=== PATIENT | female | born 1990 | race Caucasian/White ===

== ENCOUNTER 2016-08-19 23:49 | Emergency (ER) | payer SELFPAY ==
[~2016-08-19] VITALS: Ht 165.1 cm; Wt 113.5 kg
[2016-08-20] VITALS: Ht 165.1 cm; Wt 113.5 kg
--- NOTE | 2016-08-20 00:52 | ERD ---
ER Documentation Chief Complaint Date/Time DATE: 08/20/16 TIME: 00:46 Chief Complaint chest pain x 2 days, right arm pain w/ numbness x 2 days HPI 26-year-old female presents here in emergency department for complaints of right -sided chest pain that numbness and tingling for 2 days. 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 Patient used to take blood thinners for this. Patient did not take any medications for pain. Patient denies any fever or chills. Patient denies any cough. Patient has an acid reflux. ROS All systems reviewed and are negative except as per history of present illness. Medications Home Meds Reported Medications [none] Unknown Strength No Conflict Check 08/20/16 Allergies Allergies: Coded Allergies: No Known Allergy (Unverified , 08/20/16) PMhx/Soc Medical and Surgical Hx: pt denies Medical Hx, pt denies Surgical Hx Hx Alcohol Use: No Hx Substance Use: No Hx Tobacco Use: Yes Smoking Status: Current every day smoker FmHx Family History: No coronary disease, No diabetes, No other Physical Exam Vitals Vital Signs Date Time Temp Pulse Resp B/P Pulse Ox O2 Delivery O2 Flow Rate FiO2 08/20/16 00:00 98.3 93 20 177/101 99 Physical Exam GENERAL: The patient is well developed and appropriate for usual state of health, in no apparent distress. CHEST: Clear to auscultation bilaterally. There are no rales, wheezes or rhonchi. HEART: Regular rate and rhythm. No murmurs, clicks, rubs or gallops. No S3 or S4. ABDOMEN: Soft, nontender and nondistended. Good bowel sounds. No rebound or guarding. No gross peritonitis. No gross organomegaly or masses. No Stuart sign or McBurney point tenderness. BACK: No midline or flank tenderness. EXTREMITIES: Equal pulses bilaterally. There is no peripheral clubbing, cyanosis or edema. No focal swelling or erythema. Full range of motion. Grossly neurovascularly intact. NEURO: Alert and oriented. Cranial nerves 2-12 intact. Motor strength in all 4 extremities with 5/5 strength. Sensation grossly intact. Normal speech and gait. SKIN: There is no apparent rash or petechia. The skin is warm and dry. HEMATOLOGIC AND LYMPHATIC: There is no evidence of excessive bruising or lymphedema. No gross cervical, axillary, or inguinal lymphadenopathy. Result Diagram: 08/20/16 0050 08/20/16 0050 Results 24 hrs Laboratory Tests Test 08/20/16 00:50 White Blood Count 17.010^3/ul Red Blood Count 4.8310^6/ul Hemoglobin 12.5g/dl Hematocrit 40.7% Mean Corpuscular Volume 84.3fl Mean Corpuscular Hemoglobin 25.9pg Mean Corpuscular Hemoglobin Concent 30.7g/dl Red Cell Distribution Width 13.0% Platelet Count 30799^3/UL Mean Platelet Volume 10.1fl Neutrophils % 70.9% Lymphocytes % 22.5% Monocytes % 5.5% Eosinophils % 0.5% Basophils % 0.2% Nucleated Red Blood Cells % 0.0/100WBC Neutrophils # 12.010^3/ul Lymphocytes # 3.810^3/ul Monocytes # 0.910^3/ul Eosinophils # 0.110^3/ul Basophils # 0.010^3/ul Nucleated Red Blood Cells # 0.010^3/ul Sodium Level 137mmol/L Potassium Level 3.7mmol/L Chloride Level 103mmol/L Carbon Dioxide Level 29mmol/L Anion Gap 9 Blood Urea Nitrogen 13mg/dl Creatinine 0.72mg/dl Glucose Level 140mg/dl Calcium Level 8.8mg/dl Total Bilirubin 0.1mg/dl Direct Bilirubin 0.00mg/dl Indirect Bilirubin 0.1mg/dl Aspartate Amino Transf (AST/SGOT) 19IU/L Alanine Aminotransferase (ALT/SGPT) 27IU/L Alkaline Phosphatase 90IU/L Troponin I < 0.012ng/ml Total Protein 7.2g/dl Albumin 3.9g/dl Globulin 3.30g/dl Albumin/Globulin Ratio 1.18 EKG was done, read by me and is sinus tachycardia at 104 bpm, normal axis, there is no ST changes or changes in the EKG that indicates any cardiac emergencies at this time. Patient's EKG was also reviewed by . Impression: no acute findings on EKG PROCEDURE: XR left ankle. CLINICAL INDICATION: Left -sided ankle pain TECHNIQUE: AP , oblique and lateral views of theleft ankle were performed. COMPARISON: None. FINDINGS: There is normal mineralization and alignment. No fracture or osseous lesion is identified. The ankle mortis and talar dome are intact. Mild soft tissue swelling is present. The growth plates are patent compatible with the patient' s provided age of 12 years. There is no evidence for a radiopaque foreign body. RPTAT:HJJR IMPRESSION: Mild soft tissue swelling without evidence of osseous abnormality involving the left ankle. Chris Strong Physician Date Time Electronically viewed and signed by Physician Palomo on 08/20/2016 00:58 JR/ CC: ELENA DYE REGISTERED NURSE MIDWIFE PROCEDURE: XR left foot. CLINICAL INDICATION: Pain TECHNIQUE: AP, lateral and oblique views of the left foot were obtained. COMPARISON: None. FINDINGS: Mineralization is within normal limits. No fracture or osseous lesion is identified. There is no evidence for dislocation. The metatarsophalangeal, interphalangeal, and mid tarsal joint spaces are preserved. Growth plates are patent compatible the patient's provided age of 12 years. The soft tissues are unremarkable. There is no evidence for a radiopaque foreign body. IMPRESSION: Unremarkable left foot series. RPTAT:HJJR Physician Palomo Date Time Electronically viewed and signed by Physician Palomo on 08/20/2016 00:59 JR/ CC: ELENA DYE REGISTERED NURSE MIDWIFE PROCEDURE: Ultrasound examination of the right upper extremity veins with Doppler. CLINICAL INDICATION: Pain and swelling. TECHNIQUE: Multiple sonographic images of the right upper extremity veins were performed with plasencia scale and color Doppler. COMPARISON: None. FINDINGS: The right internal jugular, subclavian, axillary, brachial, basilic, cephalic, radial and ulnar veins demonstrate normal color flow, waveforms and compression. There is no evidence of deep venous thrombosis. IMPRESSION: No evidence of deep venous thrombosis within the right upper extremity veins. .Dandre Johns MD, MD Date Time Electronically viewed and signed by .Dandre Johns MD, MD on 08/20/2016 01:46 .T/ CC: ELENA DYE NP Procedures/MDM Medical Decision Making: Patient's chest pain nonspecific at this time, possible musculoskeletal pain, accompanied with the right numbness and tingling possible musculoskeletal pain also. Troponin is negative. No symptoms of any DVT. There is low suspicion for cardiopulmonary emergencies at this time. Patient has low risk factors. EKG is normal, there is no changes in the EKG that indicates cardiac emergencies. Chest X-ray does not show cardiopulmonary emergencies at this time. There is low suspicion for aortic aneurysm, myocardial infarction, pneumothorax, pleural effusion, pulmonary embolism, or any other cardiopulmonary emergencies at this time. Cardiac markers are normal. Prescription was given for ibuprofen for mild to moderate pain, tramadol for severe pain. Follow-up with primary care doctor in 1-2 days for reevaluation of symptoms. Patient was advised to return to emergency department for any worsening symptoms. Departure Diagnosis: Primary Impression: Atypical chest pain Additional Impression: Numbness Condition: Stable Patient Instructions: Chest Pain, Uncertain Cause Additional Instructions: Prescription was given for ibuprofen for mild to moderate pain, tramadol for severe pain. Follow-up with primary care doctor in 1-2 days for reevaluation of symptoms. Patient was advised to return to emergency department for any worsening symptoms. ELENA DYE NP Aug 20, 2016 00:52
[2016-08-20 00:58] LABS: ADD SCAN DIFF NO
[2016-08-20 00:59] LABS: BASOPHILS % 0.2 % (0.0-2.0); EOSINOPHILS # 0.1 10^3/ul (0.0-0.5); EOSINOPHILS % 0.5 % (0.0-7.0); HEMATOCRIT 40.7 % (37.0-47.0); HEMOGLOBIN 12.5 g/dl (12.0-16.0); LYMPHOCYTES # 3.8 10^3/ul (0.8-2.9); LYMPHOCYTES % 22.5 % (15.0-51.0); MEAN CORPUSCULAR HEMOGLOBIN 25.9 pg (29.0-33.0); MEAN CORPUSCULAR HGB CONC 30.7 g/dl (32.0-37.0); MEAN CORPUSCULAR VOLUME 84.3 fl (82.0-101.0); MEAN PLATELET VOLUME 10.1 fl (7.4-10.4); MONOCYTE # 0.9 10^3/ul (0.3-0.9); MONOCYTES % 5.5 % (0.0-11.0); NEUTROPHILS % 70.9 % (39.0-77.0); PLATELET COUNT 325 10^3/UL (140-415); RED BLOOD COUNT 4.83 10^6/ul (4.20-5.40)
[2016-08-20 01:15] LABS: ALANINE AMINOTRANSFERASE 27 IU/L (13-69); ALBUMIN 3.9 g/dl (3.3-4.9); ALBUMIN/GLOBULIN RATIO 1.18; ALKALINE PHOSPHATASE 90 IU/L (42-121); ANION GAP 9 (8-16); ASPARTATE AMINO TRANSFERASE 19 IU/L (15-46); BILIRUBIN,INDIRECT 0.1 mg/dl (0-1.1); BILIRUBIN,TOTAL 0.1 mg/dl (0.2-1.3); BLOOD UREA NITROGEN 13 mg/dl (7-20); CALCIUM 8.8 mg/dl (8.4-10.2); CARBON DIOXIDE 29 mmol/L (21-31); CHLORIDE 103 mmol/L (97-110); CREATININE 0.72 mg/dl (0.44-1.00); GLUCOSE 140 mg/dl (70-220); POTASSIUM 3.7 mmol/L (3.5-5.1); SODIUM 137 mmol/L (135-144); TOTAL PROTEIN 7.2 g/dl (6.1-8.1)
[2016-08-20 01:30] LABS: TROPONIN-I < 0.012 ng/ml (0.00-0.12)
--- NOTE | 2016-08-20 01:46 | RADRPT ---
PROCEDURE: Ultrasound examination of the right upper extremity veins with Doppler. CLINICAL INDICATION: Pain and swelling. TECHNIQUE: Multiple sonographic images of the right upper extremity veins were performed with gra y scale and color Doppler. COMPARISON: None. FINDINGS: The right internal jugular, subclavian, axillary, brachial, basilic, cephalic, radial and ulnar vein s demonstrate normal color flow, waveforms and compression. There is no evidence of deep venous thr ombosis. IMPRESSION: No evidence of deep venous thrombosis within the right upper extremity veins. .Dandre Johns MD, Date Time Electronically viewed and signed by .Dandre Johns MD, MD on 08/20/2016 01:46 .T/
--- NOTE | 2016-08-20 02:09 | RADRPT ---
PROCEDURE: XR Chest. CLINICAL INDICATION: Chest pain TECHNIQUE: AP Portable chest. COMPARISON: No pertinent prior examinations were submitted for comparison. FINDINGS: The cardiomediastinal silhouette is normal. The lungs are clear. The osseous structures are unrema rkable. IMPRESSION: No acute findings. RPTAT: HIKT .Jorge L Rivera MD, MD Date Time Electronically viewed and signed by .Jorge L Rivera MD, MD on 08/20/2016 02:08 .T/
[2016-08-20] MEDS ORDERED: TRAM50TA2 PO (02:22)
[2016-08-20] MEDS ORDERED: IBUP-1542 PO (02:22)
[2016-08-20 02:31] VITALS: BP 143/93; PULSE 87; RESP 16
== END 2016-08-20 02:32 | disposition home or self-care (01) ==
LOC: FTE 23:49
DX: R07.89 Other chest pain (principal); R20.0 Anesthesia of skin; F17.210 Nicotine dependence, cigarettes, uncomplicated
CPT/HCPCS: 36415; 71010; 80053; 84484; 85025; 93005; 93971